=== PATIENT | female | born 1990 | race Caucasian/White ===

== ENCOUNTER → 2017-02-07 | Outpatient (CLI) | payer BC ==
[~2017-02-07] MED LIST: ADV100INH INH; ALBU17IN INH; ALLERGY SHOTS SC; JOLETAB PO; LEVO500T32 PO; METR500T10 PO; MONT10TA2 PO; TRAM50TA2 PO
== END ==
LOC: M RAD 06:38
PROVIDERS: ATTEND Internal Medicine Gastroenterology
DX: R10.13 Epigastric pain (principal); Z53.9 Procedure and treatment not carried out, unspecified reason

== ENCOUNTER → 2017-02-09 | Outpatient (CLI) | payer BC ==
--- NOTE | 2017-02-09 08:55 | REP ---
MRCP: MRCP exam is accomplished utilizing multiple heavily T2 weighted sequences in the axial and coronal planes. MIP reconstruction images are performed. Patient has had a prior cholecystectomy. There is no intrahepatic biliary dilatation. The common hepatic and common bile ducts are normal in caliber. Maximum diameter is 6 mm. No stricture or filling defect is seen. The pancreatic duct is normal in caliber. The visualized portions of liver, spleen, adrenals, pancreas and kidneys are essentially unremarkable. I see no evidence of adenopathy or free fluid in the visualized abdomen. A tiny cyst is seen in the upper pole of the left kidney. IMPRESSION: Unremarkable MRCP exam status post cholecystectomy. Signed by Oliver Gonzáles MD 02/09/2017 02:24 P
== END ==
LOC: M RAD 06:37
PROVIDERS: ATTEND Internal Medicine Gastroenterology
DX: R10.13 Epigastric pain (principal)

== ENCOUNTER → 2019-12-20 | Outpatient (CLI) | payer BC ==
[~2019-12-20] MED LIST changes: +LEVO500T3 PO; -LEVO500T32 PO; +METR-265 PO; -METR500T10 PO; -MONT10TA2 PO; +MONT10TA4 PO
[2019-12-20 13:41] LABS: BLOOD UREA NITROGEN 14 MG/DL (7-18); CALCIUM LEVEL 9.5 MG/DL (8.5-10.1); CARBON DIOXIDE LEVEL 25 MEQ/L (21-32); CHLORIDE LEVEL 107 MEQ/L (98-107); CREATININE FOR GFR 0.75 MG/DL (0.55-1.30); GLOMERULAR FILTRATION RATE > 60.0 (>60); GLUCOSE, FASTING 83 MG/DL (70-100); POTASSIUM SERUM 4.3 MEQ/L (3.5-5.1); SODIUM LEVEL 137 MEQ/L (136-145)
== END ==
LOC: M LAB 12:06
PROVIDERS: ATTEND Nurse Practitioner Family
DX: J30.1 Allergic rhinitis due to pollen (principal); J30.81 Allergic rhinitis due to animal (cat) (dog) hair and dander; J30.89 Other allergic rhinitis

== ENCOUNTER → 2021-11-12 | Outpatient (CLI) | payer BC ==
[~2021-11-12] MED LIST changes: -LEVO500T3 PO; +LEVO500T4 PO; -MONT10TA4 PO; +MONT10TA97 PO
[2021-11-12 15:12] LABS: ALBUMIN 3.6 GM/DL (3.2-5.2); ALT/SGPT 35 U/L (12-78); BILIRUBIN,TOTAL 0.2 MG/DL (0.2-1.0); BLOOD UREA NITROGEN 11 MG/DL (7-18); CALCIUM LEVEL 8.6 MG/DL (8.5-10.1); CARBON DIOXIDE LEVEL 26 MEQ/L (21-32); CHLORIDE LEVEL 108 MEQ/L (98-107); CREATININE FOR GFR 0.72 MG/DL (0.55-1.30); GLOMERULAR FILTRATION RATE > 60.0 (>60); GLUCOSE, FASTING 120 MG/DL (70-100); POTASSIUM SERUM 3.7 MEQ/L (3.5-5.1); SODIUM LEVEL 139 MEQ/L (136-145); TOTAL PROTEIN 7.5 GM/DL (6.4-8.2)
== END ==
LOC: M LAB 14:11
PROVIDERS: ATTEND Internal Medicine Gastroenterology
DX: R10.11 Right upper quadrant pain (principal)

== ENCOUNTER → 2021-12-07 | Outpatient (CLI) | payer BC | LOC: M PLAIMG 11:09 | PROVIDERS: ATTEND Internal Medicine Gastroenterology | DX: R10.11 Right upper quadrant pain (principal); R10.13 Epigastric pain ==

== ENCOUNTER → 2022-03-17 | Outpatient (CLI) | payer BC ==
[2022-03-17 16:14] LABS: IMMUNOGLOBULIN A 84.8 MG/DL (70-400); IMMUNOGLOBULIN M 37.3 MG/DL (40-230)
== END ==
LOC: M LAB 15:01
PROVIDERS: ATTEND Allergy & Immunology
DX: R05.3 Chronic cough (principal); J30.1 Allergic rhinitis due to pollen; J32.0 Chronic maxillary sinusitis

== ENCOUNTER → 2024-01-27 | Outpatient (CLI) | payer BC ==
[~2024-01-27] MED LIST changes: +BARIUM SULFATE 700 MG TABLET (E-Z-DISK) As Ordered ONE; +E-Z-PAQUE 96% w/w SUSP 176GM BTL As Ordered ONE; +LEVO1TAB39 PO; -LEVO500T4 PO; +VARIBAR NECTAR 40% w/v 240ML SUSP BTL As Ordered ONE; +VARIBAR PUDDING 40% w/v 230ML TUBE As Ordered ONE
== END ==
LOC: M RAD 11:01
PROVIDERS: ATTEND Otolaryngology
DX: R13.19 Other dysphagia (principal)

== ENCOUNTER → 2024-08-22 | Outpatient (CLI) | payer BC ==
[~2024-08-22] MED LIST changes: +ALBU8.5H; +B-12100010 PO; -BARIUM SULFATE 700 MG TABLET (E-Z-DISK) As Ordered ONE; -E-Z-PAQUE 96% w/w SUSP 176GM BTL As Ordered ONE; +FLON1SPR; +FLUT1BLS4; +LEVO100T5 PO; +NEXI20CA PO; +SYNT88TA2 PO; -VARIBAR NECTAR 40% w/v 240ML SUSP BTL As Ordered ONE; -VARIBAR PUDDING 40% w/v 230ML TUBE As Ordered ONE
[2024-08-22 17:03] LABS: COMPLEMENT C3 183.7 MG/DL (84.0-160.0); COMPLEMENT C4 29.2 MG/DL (12-36); IMMUNOGLOBULIN A 100.8 MG/DL (40-350); IMMUNOGLOBULIN G 1199 MG/DL (650-1600)
[2024-08-22 17:06] LABS: IMMUNOGLOBULIN E 31.6 IU/ML (0-378)
[2024-08-23 10:17] LABS: ALPHA 1 ANTITRYPSIN 172 mg/dL (83-199)
[2024-08-23 19:22] LABS: ALMOND IGE FOOD 0.13 kU/L (<0.10); BERMUDA GRASS IGE 0.15 kU/L (<0.10); BIRCH IGE < 0.10 kU/L (<0.10); CASHEW NUT IGE FOOD < 0.10 kU/L (<0.10); CODFISH IGE FOOD < 0.10 kU/L (<0.10); COMMON RAGWEED SHORT IGE < 0.10 kU/L (<0.10); COWS MILK FOOD < 0.10 kU/L (<0.10); D001 IGE D PTERONYSSINUS < 0.10 kU/L (<0.10); D002-IGE D FARINAE < 0.10 kU/L (<0.10); E003-IGE HORSE EPITHELIA/DAND 0.34 kU/L (<0.10); E004-IGE COW DANDER < 0.10 kU/L (<0.10); E005-IGE DOG DANDER 0.67 kU/L (<0.10); EGG WHITE FOOD < 0.1 kU/L (<0.10); ELM IGE 0.11 kU/L (<0.10); HAZELNUT IGE FOOD 0.18 kU/L (<0.10); I006 IGE COCKROACH < 0.10 kU/L (<0.10); IMMUNOGLOBULIN E FOR ALLERGENS 46 kU/L (<OR=114); M002 IGE CLADOSPORIUM HERBARU < 0.10 kU/L (<0.10); M003 IGE ASPERGILLUS FUMIGATU < 0.10 kU/L (<0.10); M006 IGE ALTERNIA ALTERNATA < 0.10 kU/L (<0.10); M1-PENICILLIUM NOTATUM < 0.10 kU/L (<0.10); MOUSE URINE IGE < 0.10 kU/L (<0.10); MUGWORT IGE < 0.10 kU/L (<0.10); OAK IGE < 0.10 kU/L (<0.10); PEANUT IGE FOOD 0.13 kU/L (<0.10); ROUGH PIGWEED IGE < 0.10 kU/L (<0.10); SALMON IGE FOOD < 0.10 kU/L (<0.10); SCALLOP IGE FOOD < 0.10 kU/L (<0.10); SESAME SEED IGE FOOD < 0.10 kU/L (<0.10); SHEEP SORREL IGE < 0.10 kU/L (<0.10); SHRIMP IGE FOOD < 0.10 kU/L (<0.10); SOYBEAN IGE FOOD < 0.10 kU/L (<0.10); SYCAMORE IGE < 0.10 kU/L (<0.10); T006-IGE MOUNTAIN CEDAR < 0.10 kU/L (<0.10); T014 COTTONWOOD IGE < 0.10 kU/L (<0.10); TIMOTHY GRASS IGE < 0.10 kU/L (<0.10); TUNA IGE FOOD < 0.10 kU/L (<0.10); WALNUT IGE FOOD 0.21 kU/L (<0.10); WALNUT TREE IGE < 0.10 kU/L (<0.10); WHEAT IGE FOOD < 0.10 kU/L (<0.10); WHITE ASH IGE < 0.10 kU/L (<0.10); WHITE MULBERRY IGE < 0.10 kU/L (<0.10)
== END ==
LOC: M LAB 09:45
PROVIDERS: ATTEND Allergy & Immunology
DX: J30.1 Allergic rhinitis due to pollen (principal); J32.0 Chronic maxillary sinusitis; R05.3 Chronic cough

== ENCOUNTER 2024-08-27 06:57 | Day surgery (SDC) | payer BC ==
[~2024-08-27] VITALS: Ht 170.2 cm; Wt 124.1 kg
[2024-08-27] MEDS: NS 1,000 ML IV SCH (08:37)
[2024-08-27] MEDS ORDERED: fentaNYL 100 MCG/2 ML INJECTION As Ordered ONE (09:00)
[2024-08-27] MEDS ORDERED: LIDOCAINE 2% 100MG/5ML SDV (FOR ANES.) As Ordered ONE (09:00)
[2024-08-27] MEDS ORDERED: ONDANSETRON 4MG 2ML VIAL As Ordered ONE (09:00)
[2024-08-27] MEDS ORDERED: ROCURONIUM BROMIDE 50MG/5ML VIAL As Ordered ONE (09:00)
[2024-08-27] MEDS ORDERED: MIDAZOLAM INJ 2MG/2ML VIAL As Ordered ONE (09:00)
[2024-08-27] MEDS ORDERED: propofoL 200 MG/20 ML VIAL As Ordered ONE (09:00)
[2024-08-27] MEDS ORDERED: dexmedeTOMIDine (4MCG/ML)200MCG/50ML BTL (PRECEDEX) As Ordered ONE (09:04)
[2024-08-27] MEDS ORDERED: ACETAMINOPHEN 1000MG 100ML IV BAG As Ordered ONE (09:40)
[2024-08-27] MEDS ORDERED: SUGAMMADEX SODIUM 500 MG/5 ML VIAL (BRIDION) As Ordered ONE (09:40)
[2024-08-27] MEDS: OXYMETAZOLINE 0.05% NASAL SPRAY (AFRIN) As Ordered ONE (09:50)
[2024-08-27] MEDS: COCAINE 4% 4ML NASAL SOLUTION BTL As Ordered ONE (09:51)
[2024-08-27] MEDS: LIDOCAINE W/EPINEPHRINE 1% 20ML VIAL As Ordered ONE (10:22)
[2024-08-27] MEDS ORDERED: NS 1,000 ML IV SCH (10:35)
[2024-08-27] MEDS ORDERED: fentaNYL 100 MCG/2 ML INJECTION IV PRN (10:35)
[2024-08-27] MEDS ORDERED: HYDROMORPHONE HCL 0.5 MG/ 0.5 ML SYRINGE IV PRN (10:35)
[2024-08-27] MEDS: ONDANSETRON 4MG 2ML VIAL IV PRN (10:51)
[2024-08-27] MEDS: oxyCODONE 5MG TAB PO PRN (10:59)
[2024-08-27] MEDS ORDERED: ANEXSIA, NORCO 7.5MG/325MG TABLET(HYDROCODONE/APAP) PO PRN (11:15)
[2024-08-27 11:35] VITALS: BP 142/84; TEMP 97.8; O2SAT 95
== END 2024-08-27 11:56 | disposition home or self-care (01) ==
LOC: M SDC 06:57
PROVIDERS: ATTEND Otolaryngology
DX: J34.2 Deviated nasal septum (principal); J34.3 Hypertrophy of nasal turbinates; E03.9 Hypothyroidism, unspecified; K21.9 Gastro-esophageal reflux disease without esophagitis; J45.909 Unspecified asthma, uncomplicated; Z79.51 Long term (current) use of inhaled steroids; F12.10 Cannabis abuse, uncomplicated; J30.2 Other seasonal allergic rhinitis; Z88.1 Allergy status to other antibiotic agents
CPT/HCPCS: 30140; 30520; C9143; J0131; J1100; J2250; J2405; J3010

== ENCOUNTER → 2025-05-29 | Outpatient (CLI) | payer BC ==
[~2025-05-29] MED LIST changes: -ADV100INH INH; +ADVA1AER8 INH; +ISOVUE-370 76% 100 ML VIAL As Ordered ONE
== END ==
LOC: M RAD 12:45
DX: R94.5 Abnormal results of liver function studies (principal); K76.0 Fatty (change of) liver, not elsewhere classified; K62.5 Hemorrhage of anus and rectum; R93.3 Abnormal findings on diagnostic imaging of other parts of digestive tract; Z80.0 Family history of malignant neoplasm of digestive organs; R13.10 Dysphagia, unspecified; R10.11 Right upper quadrant pain; R19.5 Other fecal abnormalities; K21.9 Gastro-esophageal reflux disease without esophagitis; R16.2 Hepatomegaly with splenomegaly, not elsewhere classified
CPT/HCPCS: 74160; Q9967

== ENCOUNTER → 2025-09-16 | Outpatient (CLI) | payer BC ==
[~2025-09-16] MED LIST changes: -ISOVUE-370 76% 100 ML VIAL As Ordered ONE
[2025-09-16 12:25] LABS: COMPLEMENT C4 24.6 MG/DL (12-36)
[2025-09-16 12:28] LABS: IMMUNOGLOBULIN E 34.8 IU/ML (0-378)
[2025-09-17 11:48] LABS: ALPHA 1 ANTITRYPSIN 143 mg/dL (83-199)
[2025-09-17 15:03] LABS: ALMOND IGE FOOD < 0.10 kU/L (<0.10); BERMUDA GRASS IGE 0.13 kU/L (<0.10); BIRCH IGE < 0.10 kU/L (<0.10); BRAZIL NUT CLASS IGE <0.10 ABSENT (<0.10); BRAZIL NUT IGE < 0.10 kU/L (<0.10); CASHEW NUT IGE FOOD < 0.10 kU/L (<0.10); CODFISH IGE FOOD < 0.10 kU/L (<0.10); COMMON RAGWEED SHORT IGE < 0.10 kU/L (<0.10); COWS MILK FOOD < 0.10 kU/L (<0.10); D001 IGE D PTERONYSSINUS < 0.10 kU/L (<0.10); D002-IGE D FARINAE < 0.10 kU/L (<0.10); E001-IGE CAT DANDER 17.40 kU/L (<0.10); E003-IGE HORSE EPITHELIA/DAND 0.36 kU/L (<0.10); E004-IGE COW DANDER < 0.10 kU/L (<0.10); E005-IGE DOG DANDER 0.82 kU/L (<0.10); EGG WHITE FOOD < 0.1 kU/L (<0.10); ELM IGE 0.14 kU/L (<0.10); HAZELNUT IGE FOOD 0.16 kU/L (<0.10); I006 IGE COCKROACH < 0.10 kU/L (<0.10); IMMUNOGLOBULIN E FOR ALLERGENS 49 kU/L (<OR=114); M006 IGE ALTERNIA ALTERNATA < 0.10 kU/L (<0.10); M1-PENICILLIUM NOTATUM < 0.10 kU/L (<0.10); MACADAMIA NUT CLASS IGE <0.10 ABSENT (<0.10); MOUSE URINE IGE < 0.10 kU/L (<0.10); MUGWORT IGE < 0.10 kU/L (<0.10); OAK IGE < 0.10 kU/L (<0.10); PEANUT IGE FOOD 0.12 kU/L (<0.10); ROUGH PIGWEED IGE < 0.10 kU/L (<0.10); SALMON IGE FOOD < 0.10 kU/L (<0.10); SCALLOP IGE FOOD < 0.10 kU/L (<0.10); SESAME SEED IGE FOOD < 0.10 kU/L (<0.10); SHEEP SORREL IGE < 0.10 kU/L (<0.10); SHRIMP IGE FOOD < 0.10 kU/L (<0.10); SOYBEAN IGE FOOD < 0.10 kU/L (<0.10); T001-IGE MAPLE BOX ELDER < 0.10 kU/L (<0.10); T006-IGE MOUNTAIN CEDAR < 0.10 kU/L (<0.10); T014 COTTONWOOD IGE < 0.10 kU/L (<0.10); TIMOTHY GRASS IGE < 0.10 kU/L (<0.10); TUNA IGE FOOD < 0.10 kU/L (<0.10); WALNUT IGE FOOD 0.21 kU/L (<0.10); WALNUT TREE IGE < 0.10 kU/L (<0.10); WHEAT IGE FOOD < 0.10 kU/L (<0.10); WHITE ASH IGE < 0.10 kU/L (<0.10); WHITE MULBERRY IGE < 0.10 kU/L (<0.10)
[2025-09-18 05:06] LABS: F054-IGE SWEET POTATO <0.10 kU/L (Class 0)
[2025-09-18 15:58] LABS: E094-IgE Fel d 1 19.1 kU/L (<0.10); E101-IgE Can f 1 < 0.10 kU/L (<0.10); E102-IgE Can f 2 < 0.10 kU/L (<0.10); E226 IgE Can f 5 < 0.10 kU/L (<0.10); E228-IgE Fel d 4 < 0.10 kU/L (<0.10); E229 IGE CAN F 4 < 0.10 kU/L (<0.10); E230 IGE CAN F 6 < 0.10 kU/L (<0.10); E231 IGE FEL D 7 < 0.10 kU/L (<0.10)
== END ==
LOC: M LAB 10:19
PROVIDERS: ATTEND Nurse Practitioner Family
DX: J45.20 Mild intermittent asthma, uncomplicated (principal); H10.45 Other chronic allergic conjunctivitis; R05.3 Chronic cough